=== PATIENT | male | born 1950 | race Caucasian/White ===

== ENCOUNTER 2021-06-05 20:10 | Emergency (ER) | payer SELFPAY ==
[~2021-06-05] VITALS: Ht 172.7 cm; Wt 65.0 kg
[~2021-06-05 20:10] MED LIST: ASPI-41 PO; ATOR20TA66 PO
[2021-06-05 20:43] VITALS: BP 100/70
== END 2021-06-05 22:14 | disposition home or self-care (01) ==
LOC: ER 20:11
DX: K40.90 Unilateral inguinal hernia, without obstruction or gangrene, not specified as recurrent (principal); R11.0 Nausea; Z79.82 Long term (current) use of aspirin; Z79.899 Other long term (current) drug therapy
CPT/HCPCS: 99284

== ENCOUNTER 2022-02-27 18:22 | Inpatient (IN) | payer MEDICAID ==
[~2022-02-27] VITALS: Ht 172.7 cm; Wt 69.1 kg
[2022-02-27] MEDS ORDERED: ketorolac trometh. 30mg/ml inj. IV ONE (18:50)
[2022-02-27] MEDS ORDERED: azithromycin/NS 500mg/250ml 250 ML IV ONE (18:50)
[2022-02-27] MEDS ORDERED: normal saline 1000ML IV soln IVB ONE (18:50)
[2022-02-27] MEDS ORDERED: ondansetron/PF 4mg/2ml inj IV ONE (18:50)
[2022-02-27] MEDS ORDERED: CefTRIAXone/D5W-Rocephin 1gm 50 ML IV ONE (18:50)
[2022-02-27] MEDS ORDERED: ketorolac tromethamine 15mg/ml inj. IV ONE (18:50)
[2022-02-27 19:06] LABS: BASOPHILS # (AUTO) 0.1 X10'3 (0-0.2); BASOPHILS % (AUTO) 0.9 % (0-1); EOSINOPHILS % (AUTO) 0.1 % (0-6); HEMATOCRIT 42.3 % (42.0-52.0); HEMOGLOBIN 14.3 g/dl (14.0-17.9); LYMPHOCYTES # (AUTO) 0.4 X10'3 (1.1-4.8); LYMPHOCYTES % (AUTO) 4.9 % (21-51); MEAN CORPUSCULAR HEMOGLOBIN 30.5 PG (27.0-31.0); MEAN CORPUSCULAR HGB CONC 33.9 g/dL (33.0-36.5); MEAN CORPUSCULAR VOLUME 89.9 FL (78-98); MEAN PLATELET VOLUME 7.2 FL (7.4-10.4); MONOCYTES # (AUTO) 0.6 X10'3 (0-0.9); MONOCYTES % (AUTO) 8.1 % (2-12); NEUTROPHILS # (AUTO) 6.4 X10'3 (1.8-7.7); PLATELET COUNT 255 X10'3 (140-440); RED BLOOD COUNT 4.71 X10'6 (4.70-6.10); RED CELL DISTRIBUTION WIDTH 13.5 % (11.5-14.5); WHITE BLOOD COUNT 7.5 X10'3 (4.5-11.0)
[2022-02-27 19:21] LABS: ALANINE AMINOTRANSFERASE 20 U/L (12-78); ALBUMIN 3.3 G/DL (3.4-5.0); ALBUMIN/GLOBULIN RATIO 0.8 (1.1-1.5); ALKALINE PHOSPHATASE 137 IU/L (46-116); ANION GAP 10 (8-16); ASPARTATE AMINO TRANSFERASE 21 U/L (10-37); BILIRUBIN,TOTAL 0.6 MG/DL (0.1-1.0); BLOOD UREA NITROGEN 19 MG/DL (7-18); BUN/CREATININE RATIO 14.3 (5.4-32.0); CALCIUM 9.4 MG/DL (8.5-10.1); CHLORIDE 101 MMOL/L (99-107); CREATININE 1.33 MG/DL (0.60-1.10); GLUCOSE 132 MG/DL (70-104); SODIUM 136 MMOL/L (135-145); TOTAL CARBON DIOXIDE 25.4 MMOL/L (24-32); TOTAL PROTEIN 7.6 G/DL (6.4-8.2); eGFR 53 ML/MIN
[2022-02-27] MEDS ORDERED: iohexol 350MG/ML 100ml bottle IV ONE (19:37)
[2022-02-27] MEDS ORDERED: metoclopramide 5 mg/ml inj IV ONE (21:40)
[2022-02-27] MEDS ORDERED: acetaminophen 325mg tablet PO ONE (21:40)
[2022-02-27] MEDS ORDERED: potassium Cl 40MEQ/1/2NS 520ml 520 ML IV PRN (22:55)
[2022-02-27] MEDS ORDERED: magnesium 4gm in 100ml NS 100 ML IV PRN (22:55)
[2022-02-27] MEDS ORDERED: acetaminophen 325mg tablet PO PRN ×2 (22:55)
[2022-02-27] MEDS ORDERED: magnesium Cl slow-release 64mg tablet PO PRN (22:55)
[2022-02-27] MEDS ORDERED: mag hydrox/Alum hydrox/simeth 30ml oral suspension PO PRN (22:55)
[2022-02-27] MEDS ORDERED: HYDROcodone/acetaminophen 10/325mg tab PO PRN (22:55)
[2022-02-27] MEDS ORDERED: magnesium hydroxide 30ml (MOM) UD suspension PO PRN (22:55)
[2022-02-27] MEDS ORDERED: ondansetron/PF 4mg/2ml inj IV PRN (22:55)
[2022-02-27] MEDS ORDERED: potassium Cl 20 mEq SR tablet PO PRN ×2 (22:55)
[2022-02-28] MEDS: normal saline 1000ml 1,000 ML IV SCH ×3 (01:08→16:42)
[2022-02-28 07:48] LABS: BASOPHILS % (AUTO) 0.5 % (0-1); EOSINOPHILS % (AUTO) 0.1 % (0-6); HEMATOCRIT 40.9 % (42.0-52.0); HEMOGLOBIN 13.9 g/dl (14.0-17.9); LYMPHOCYTES % (AUTO) 10.4 % (21-51); MEAN CORPUSCULAR HEMOGLOBIN 30.7 PG (27.0-31.0); MEAN CORPUSCULAR VOLUME 90.4 FL (78-98); MEAN PLATELET VOLUME 7.2 FL (7.4-10.4); MONOCYTES % (AUTO) 10.8 % (2-12); NEUTROPHILS # (AUTO) 7.2 X10'3 (1.8-7.7); NEUTROPHILS % (AUTO) 78.2 % (42-75); PLATELET COUNT 251 X10'3 (140-440); RED BLOOD COUNT 4.52 X10'6 (4.70-6.10); RED CELL DISTRIBUTION WIDTH 13.9 % (11.5-14.5); WHITE BLOOD COUNT 9.3 X10'3 (4.5-11.0)
[2022-02-28] MEDS: docusate sod 100mg capsule PO SCH ×2 (07:54→21:39)
[2022-02-28] MEDS: K and/or MAG REPLACEMENT MC SCH ×2 (08:00→20:00)
[2022-02-28] MEDS: heparin, porcine 5000 units/ml vial SQ SCH ×2 (08:03→21:39)
[2022-02-28 08:23] LABS: ALANINE AMINOTRANSFERASE 19 U/L (12-78); ALBUMIN 2.8 G/DL (3.4-5.0); ALBUMIN/GLOBULIN RATIO 0.7 (1.1-1.5); ALKALINE PHOSPHATASE 115 IU/L (46-116); ANION GAP 6 (8-16); ASPARTATE AMINO TRANSFERASE 25 U/L (10-37); BILIRUBIN,TOTAL 0.7 MG/DL (0.1-1.0); BLOOD UREA NITROGEN 21 MG/DL (7-18); BUN/CREATININE RATIO 18.4 (5.4-32.0); CALCIUM 8.7 MG/DL (8.5-10.1); CHLORIDE 103 MMOL/L (99-107); CREATININE 1.14 MG/DL (0.60-1.10); GLUCOSE 117 MG/DL (70-104); MAGNESIUM 1.9 MG/DL (1.5-2.4); POTASSIUM 3.9 MMOL/L (3.5-5.1); SODIUM 134 MMOL/L (135-145); TOTAL CARBON DIOXIDE 25.2 MMOL/L (24-32); TOTAL PROTEIN 6.8 G/DL (6.4-8.2); eGFR 64 ML/MIN
[2022-02-28] MEDS ORDERED: RED600TA PO (10:25)
[2022-02-28] MEDS ORDERED: oseltamivir phos 75mg capsule PO ONE (20:15)
[2022-03-01 02:22] VITALS: BP 119/62
[2022-03-01] MEDS: normal saline 1000ml 1,000 ML IV SCH ×2 (04:55→15:08)
[2022-03-01 06:20] LABS: BASOPHILS % (AUTO) 0.5 % (0-1); EOSINOPHILS % (AUTO) 0.4 % (0-6); HEMOGLOBIN 13.5 g/dl (14.0-17.9); LYMPHOCYTES # (AUTO) 1.3 X10'3 (1.1-4.8); LYMPHOCYTES % (AUTO) 19.3 % (21-51); MEAN CORPUSCULAR HEMOGLOBIN 30.5 PG (27.0-31.0); MEAN CORPUSCULAR HGB CONC 33.9 g/dL (33.0-36.5); MEAN PLATELET VOLUME 7.2 FL (7.4-10.4); MONOCYTES # (AUTO) 0.8 X10'3 (0-0.9); MONOCYTES % (AUTO) 11.7 % (2-12); NEUTROPHILS # (AUTO) 4.6 X10'3 (1.8-7.7); NEUTROPHILS % (AUTO) 68.1 % (42-75); PLATELET COUNT 224 X10'3 (140-440); RED BLOOD COUNT 4.44 X10'6 (4.70-6.10); RED CELL DISTRIBUTION WIDTH 13.9 % (11.5-14.5); WHITE BLOOD COUNT 6.8 X10'3 (4.5-11.0)
[2022-03-01 06:30] VITALS: BP 124/66
[2022-03-01 06:31] LABS: ALANINE AMINOTRANSFERASE 17 U/L (12-78); ALBUMIN 2.7 G/DL (3.4-5.0); ALBUMIN/GLOBULIN RATIO 0.7 (1.1-1.5); ALKALINE PHOSPHATASE 110 IU/L (46-116); ANION GAP 6 (8-16); ASPARTATE AMINO TRANSFERASE 22 U/L (10-37); BILIRUBIN,TOTAL 0.5 MG/DL (0.1-1.0); BLOOD UREA NITROGEN 15 MG/DL (7-18); BUN/CREATININE RATIO 15.8 (5.4-32.0); CALCIUM 8.7 MG/DL (8.5-10.1); CHLORIDE 105 MMOL/L (99-107); CREATININE 0.95 MG/DL (0.60-1.10); GLUCOSE 100 MG/DL (70-104); MAGNESIUM 1.8 MG/DL (1.5-2.4); POTASSIUM 3.8 MMOL/L (3.5-5.1); SODIUM 137 MMOL/L (135-145); TOTAL CARBON DIOXIDE 26.1 MMOL/L (24-32); TOTAL PROTEIN 6.4 G/DL (6.4-8.2); eGFR 78 ML/MIN
--- NOTE | 2022-03-01 06:35 | NUR ---
Patient in room PCU 3020. I have received report from Eulalio CABRALES and had the opportunity to ask questions and assume patient care.
[2022-03-01] MEDS: K and/or MAG REPLACEMENT MC SCH (08:00)
[2022-03-01] MEDS: docusate sod 100mg capsule PO SCH (08:11)
[2022-03-01] MEDS: heparin, porcine 5000 units/ml vial SQ SCH (08:17)
[2022-03-01 10:59] VITALS: BP 130/62
[2022-03-01] MEDS ORDERED: PERFLUTREN PROTEIN-A MICROSPHR (Optison) 0.22 MG/ML 3ML VIAL IV ONE (11:35)
--- NOTE | 2022-03-01 14:33 | NUR ---
RE: Ambrocio Cuevas room 302 Echo done Did you want to put in discharge orders? Christopher CABRALES [id number]
[2022-03-01 15:21] VITALS: BP 135/64
--- NOTE | 2022-03-01 15:31 | NUR ---
PAGER ID: [phone] MESSAGE: [phone] Mason Albrecht. Patient is wondering if he is still getting DC today. He has a ride here now. Annia CHAVIS [phone]
[2022-03-01] MEDS ORDERED: TAM75C PO ×2 (16:32)
--- NOTE | 2022-03-01 16:33 | NUR ---
PAGER ID: [phone] MESSAGE: [phone] Ambrocio Cuevas. Patient continues to ask what time he is going to be discharged. He is concerned about the snow in [place]. His Echo is completed. Thank you Annia CHAVIS [phone]
--- NOTE | 2022-03-01 17:02 | NUR ---
Patient discharged home. Discharge instructions and education provided and patient's questions answered. New Rx sent to preferred pharmacy. Patient escorted out by nursing and left via private vehicle.
== END 2022-03-01 16:55 | disposition home or self-care (01) | DRG 113 ==
LOC: ER 18:23 → ED HOLD 22:58 → PCU 3S 02-28 22:15
PROVIDERS: ADMIT Internal Medicine; ATTEND Internal Medicine
PROC: B32T1ZZ Computerized Tomography (CT Scan) of Left Pulmonary Artery using Low Osmolar Contrast (ICD-10-PCS; principal; 2022-02-27)
PROC: B3201ZZ Computerized Tomography (CT Scan) of Thoracic Aorta using Low Osmolar Contrast (ICD-10-PCS; 2022-02-27)
PROC: B32S1ZZ Computerized Tomography (CT Scan) of Right Pulmonary Artery using Low Osmolar Contrast (ICD-10-PCS; 2022-02-27)
DX: J10.1 Influenza due to other identified influenza virus with other respiratory manifestations (principal); I47.1 Supraventricular tachycardia; E78.5 Hyperlipidemia, unspecified; Z20.822 Contact with and (suspected) exposure to COVID-19; R63.0 Anorexia; R09.02 Hypoxemia; Z28.310 Unvaccinated for COVID-19; Z68.23 Body mass index [BMI] 23.0-23.9, adult
CPT/HCPCS: 36415; 71045; 71275; 80053; 83605; 83735; 83880; 84145; 85025; 87040; 87081; 87502; 87503; 87635; 93005; 93306; 96361; 96365; 96367; 96375; 99285; C9803; G0378; J0456; J0696; J1644; J1885; J2765; J7030; Q9967

== ENCOUNTER 2023-07-20 12:14 | Emergency (ER) | payer MEDICARE, MEDICAID ==
[~2023-07-20] VITALS: Ht 172.7 cm; Wt 69.1 kg
[~2023-07-20 12:14] MED LIST changes: -ASPI-41 PO; -ATOR20TA66 PO; +MAGN100T PO; +OMEG1CAP61 PO; +RED600TA PO; +UBID100C16 PO
[2023-07-20 13:26] VITALS: BP 143/55; PULSE 73; RESP 16; TEMP 98.7; O2SAT 96
[2023-07-20] MEDS ORDERED: SULF1TAB49 PO (14:30)
== END 2023-07-20 15:00 | disposition left against medical advice (07) ==
LOC: ER 12:15
DX: N45.3 Epididymo-orchitis (principal); Z76.0 Encounter for issue of repeat prescription
CPT/HCPCS: 99281

== ENCOUNTER 2023-07-22 16:56 | Emergency (ER) | payer MEDICARE, MEDICAID ==
[~2023-07-22] VITALS: Ht 172.7 cm; Wt 65.9 kg
[~2023-07-22 16:56] MED LIST changes: +SULF1TAB49 PO
[2023-07-22] MEDS ORDERED: ketorolac trometh. 30mg/ml inj. IV STA (18:56)
[2023-07-22] MEDS ORDERED: ondansetron/PF 4mg/2ml inj IV ONE (19:00)
[2023-07-22] MEDS ORDERED: HYDROmorphone inj. 0.5 MG/0.5 ML DISP.SYRIN IV PRN (19:00)
[2023-07-22] MEDS ORDERED: ketorolac tromethamine 15mg/ml inj. IV STA (19:01)
[2023-07-22 19:27] LABS: BASOPHILS # (AUTO) 0.1 X10'3 (0-0.2); EOSINOPHILS # (AUTO) 0.4 X10'3 (0-0.9); LYMPHOCYTES # (AUTO) 1.3 X10'3 (1.1-4.8); MONOCYTES # (AUTO) 0.9 X10'3 (0-0.9); WHITE BLOOD COUNT 9.6 X10'3 (4.5-11.0)
[2023-07-22 19:30] LABS: BASOPHILS % (AUTO) 0.5 % (0-1); EOSINOPHILS % (AUTO) 4.4 % (0-6); HEMATOCRIT 42.6 % (42.0-52.0); HEMOGLOBIN 14.9 g/dl (14.0-17.9); LYMPHOCYTES % (AUTO) 13.4 % (21-51); MEAN CORPUSCULAR HEMOGLOBIN 31.8 PG (27.0-31.0); MEAN CORPUSCULAR HGB CONC 34.8 g/dL (33.0-36.5); MEAN CORPUSCULAR VOLUME 91.3 FL (78-98); MEAN PLATELET VOLUME 6.6 FL (7.4-10.4); MONOCYTES % (AUTO) 9.8 % (2-12); NEUTROPHILS # (AUTO) 6.9 X10'3 (1.8-7.7); NEUTROPHILS % (AUTO) 71.9 % (42-75); PLATELET COUNT 480 X10'3 (140-440); RED BLOOD COUNT 4.67 X10'6 (4.70-6.10); RED CELL DISTRIBUTION WIDTH 12.8 % (11.5-14.5)
[2023-07-22] MEDS ORDERED: iohexol 300mg/ml 100ml inj. ONE (19:34)
[2023-07-22 19:39] LABS: BILIRUBIN,URINE NEGATIVE (Neg); CLARITY,URINE CLEAR (Clear); COLOR,URINE YELLOW (Yellow); GLUCOSE, URINE NEGATIVE (Neg); KETONES,URINE NEGATIVE (Neg); LEUKOCYTE ESTERASE ,URINE NEGATIVE (Neg); NITRITES, URINE NEGATIVE (Neg); OCCULT BLOOD,URINE NEGATIVE (Neg); PROTEIN,URINE NEGATIVE (Neg); UA COLLECTION TYPE NON-SPECIFIED; UROBILINOGEN,URINE 0.2 E.U/dL (0.2-1.0)
[2023-07-22 19:40] LABS: ALBUMIN 3.2 G/DL (3.4-5.0); BLOOD UREA NITROGEN 14 MG/DL (7-18); BUN/CREATININE RATIO 8.8 (10.0-20.0); CALCIUM 10.4 MG/DL (8.5-10.1); CHLORIDE 101 MMOL/L (99-107); MAGNESIUM 2.4 MG/DL (1.5-2.4); TOTAL CARBON DIOXIDE 28.5 MMOL/L (24-32); eCRCL 39 ML/MIN; eGFR 43 ML/MIN
[2023-07-22 19:47] LABS: ANION GAP 14 (8-16); GLUCOSE 124 MG/DL (70-104); POTASSIUM 3.4 MMOL/L (3.5-5.1); SODIUM 143 MMOL/L (135-145)
[2023-07-22 21:40] VITALS: BP 145/61; PULSE 58; RESP 16; TEMP 99; O2SAT 98
== END 2023-07-22 21:42 | disposition home or self-care (01) ==
LOC: ER 16:56
DX: N44.00 Torsion of testis, unspecified (principal); N43.3 Hydrocele, unspecified; N45.1 Epididymitis; F12.90 Cannabis use, unspecified, uncomplicated
CPT/HCPCS: 36415; 72193; 76870; 80048; 81003; 83605; 83735; 84145; 85025; 87040; 93976; 99285; J3490; Q9967

== ENCOUNTER 2024-09-04 23:00 | Inpatient (IN) | payer MEDICARE, MEDICAID ==
[~2024-09-04] VITALS: Ht 165.1 cm; Wt 67.2 kg
[~2024-09-04 23:00] MED LIST changes: -SULF1TAB49 PO
--- NOTE | 2024-09-04 23:35 | RADIOLOGY REPORT ---
EXAM: CT CT STROKE ALERT INDICATION: STROKE SYMPTOMS TECHNIQUE: CT of the head without intravenous contrast. Radiation Dose : 1. Head: CT Dose: CTDI volume is 58 mGy. Dose-length product is 1095 mGy*cm The dose indicators for CT are the volume Computed Tomography (CT) Dose Index (CTDIvol) and the Dose Length Product (DLP), and are measured in units of mGy and mGy-cm, respectively. These indicators are not patient dose, but values generated from the CT scanner acquisition factors. The report includes radiation exposure data for exposures received during this examination. COMPARISON: None FINDINGS: There is no evidence of acute intracranial hemorrhage, extra-axial collection, mass effect, midline s hift, herniation or hydrocephalus. The ventricles, sulci and cisterns are age appropriate. The ochoa-white differentiation is intact. Patchy periventricular and subcortical white matter hypoattenuation is nonspecific but may be related to small vessel ischemic disease. Air-fluid level in the left maxillary sinus. Mastoid air cells are clear. The surrounding soft tissues and osseous structures are unremarkable. IMPRESSION: No acute intracranial abnormality. Left maxillary sinus disease. If there is high clinical concern f or acute infarct consider MRI for further evaluation.
[2024-09-04 23:36] LABS: BASOPHILS % (AUTO) 0.6 % (0-1); EOSINOPHILS # (AUTO) 0.3 X10'3 (0-0.9); EOSINOPHILS % (AUTO) 4.9 % (0-6); HEMATOCRIT 45.2 % (42.0-52.0); HEMOGLOBIN 15.5 g/dl (14.0-17.9); LYMPHOCYTES # (AUTO) 1.4 X10'3 (1.1-4.8); LYMPHOCYTES % (AUTO) 20.9 % (21-51); MEAN CORPUSCULAR HEMOGLOBIN 31.1 PG (27.0-31.0); MEAN CORPUSCULAR HGB CONC 34.4 g/dL (33.0-36.5); MEAN CORPUSCULAR VOLUME 90.5 FL (78-98); MEAN PLATELET VOLUME 7.2 FL (7.4-10.4); MONOCYTES # (AUTO) 0.7 X10'3 (0-0.9); MONOCYTES % (AUTO) 9.9 % (2-12); NEUTROPHILS # (AUTO) 4.3 X10'3 (1.8-7.7); NEUTROPHILS % (AUTO) 63.7 % (42-75); PLATELET COUNT 277 X10'3 (140-440); RED BLOOD COUNT 4.99 X10'6 (4.70-6.10); WHITE BLOOD COUNT 6.8 X10'3 (4.5-11.0)
[2024-09-04 23:42] LABS: ALBUMIN 3.6 G/DL (3.4-5.0); ANION GAP 11 (8-16); BLOOD UREA NITROGEN 10 MG/DL (7-18); BUN/CREATININE RATIO 7.7 (10.0-20.0); CALCIUM 9.6 MG/DL (8.5-10.1); CHLORIDE 102 MMOL/L (99-107); GLUCOSE 188 MG/DL (70-104); POTASSIUM 3.8 MMOL/L (3.5-5.1); SODIUM 141 MMOL/L (135-145); TOTAL CARBON DIOXIDE 27.7 MMOL/L (24-32); eCRCL 45 ML/MIN; eGFR 54 ML/MIN
[2024-09-04 23:45] LABS: APTT 30 SECONDS (22-32); INR 1.1 INR; PROTHROMBIN TIME 10.8 SECONDS (9.0-12.0)
--- NOTE | 2024-09-04 23:45 | RADIOLOGY REPORT ---
CHEST RADIOGRAPH Indication: Stroke Alert Technique: Single frontal view of the chest was obtained Comparison: CHEST,SINGLE VIEW on DOS: 02/27/22 FINDINGS: Lines and Tubes: None Lungs: Clear Pleura: No effusion. No pneumothorax. Cardiomediastinal contours: Unremarkable Bones: Unremarkable IMPRESSION: Clear lungs.
[2024-09-05] VITALS (7 sets, daily range): BP systolic 115–153; BP diastolic 39–74; PULSE 42–68; RESP 13–16; TEMP 97.5–97.8; O2SAT 98–100
--- NOTE | 2024-09-05 00:01 | Physician Documentation ---
History of Present Illness ~ Chief Complaint: Dizziness Stated Complaint: STROKE LIKE SYMPTOMS Time Seen by MD: 23:59 Primary Medical Doctor: NONE Mode of Arrival: POV HPI Patient presents to the emergency room for evaluation of confusion and some degree of right upper extremity weakness. Daughter at bedside also states he has problems completing his sentences and words. Onset of symptoms three weeks ago. He is not on blood thinners. Takes red rice yeast for hyperlipidemia and multiple other supplements. Patient believes many of his symptoms are because of the water he drinks Medication Reconciliation Allergies: Coded Allergies: No Known Allergies (Unverified , 09/04/24) Scheduled Magnesium Glycinate (Mag Glycinate), 2 TAB PO DAILY, (Reported) [place]-3 Acid Ethyl Esters* (Lovaza*), 3-4 CAP PO DAILY, (Reported) Red Yeast Rice (Red Yeast Rice), 600 MG PO BID, (Reported) Ubidecarenone (Coq-10), 100 MG PO DAILY, (Reported) Past Medical History Past Medical History: Pneumonia, *PSYCH* Past Surgical History: no surgical history Patient History: Neoplasm of brain MOTHER, Onset:60 Alcohol Use: None Drug Use: marijuana Lives with: Family Lives In: Home Review of Systems ROS All review of systems negative except as per HPI Physical Exam Vital Signs: Temperature: 98.7, Source: Oral, Heart Rate: 60, Respiratory Rate: 18, BP: 148/66, Pulse Oximetry: 97, Weight: 67.200 Oxygen Flow Rate: 0 General Appearance General: Patient is awake, alert, oriented x3, pressured speech Head: Normocephalic and atraumatic. Eyes: Conjunctival normal. EOMI. PERRL. ENT: Mucous membranes moist. Neck: Supple, trachea is midline. Chest: Clear to auscultation bilaterally without rales, rhonchi, or wheezes. There is no accessory muscle use or retractions. Cardiac: RRR without murmurs, gallops, or rubs. Extremities: Normal strength. Normal range of motion. No deformities or edema. Neuro: Cranial nerves II-XII grossly intact. No focal neuro deficits. Patient ambulating without difficulty. Progress Results/Orders Results/Orders Vital Signs 09/04/24 09/04/24 23:04 23:33 Temp 98.7 Pulse 60 Resp 16 18 B/P (MAP) 148/66 Pulse Ox 97 O2 Flow Rate 0 Laboratory Tests Test 09/04/24 23:25 White Blood Count 6.8 Red Blood Count 4.99 Hemoglobin 15.5 Hematocrit 45.2 Mean Corpuscular Volume 90.5 Mean Corpuscular Hemoglobin 31.1 H Mean Corpuscular Hemoglobin Concent 34.4 Red Cell Distribution Width 13.0 Platelet Count 277 Mean Platelet Volume 7.2 L Neutrophils (%) (Auto) 63.7 Lymphocytes (%) (Auto) 20.9 L Monocytes (%) (Auto) 9.9 Eosinophils (%) (Auto) 4.9 Basophils (%) (Auto) 0.6 Neutrophils # (Auto) 4.3 Lymphocytes # (Auto) 1.4 Monocytes # (Auto) 0.7 Eosinophils # (Auto) 0.3 Basophils # (Auto) 0.0 CBC Comment Prothrombin Time 10.8 INR International Normalized Ratio 1.1 Activated Partial Thromboplast Time 30 Coagulation Comments Sodium Level 141 Potassium Level 3.8 Chloride Level 102 Carbon Dioxide Level 27.7 Anion Gap 11 Blood Urea Nitrogen 10 Creatinine 1.30 H Estimated GFR/1.73 m2 54 BUN/Creatinine Ratio 7.7 L Glucose Level 188 H Calcium Level 9.6 Albumin 3.6 Chemistry Comments EKG/XRAY/CT/US/VASC/MRI EKG : Additional Comment EKG interpreted by myself shows time of 06/19/2025, rate 58, sinus bradycardia, normal axis, no ST changes Chest X-Ray : Additional Comments Exam: CHEST,SINGLE VIEW CHEST RADIOGRAPH Indication: Stroke Alert Technique: Single frontal view of the chest was obtained Comparison: CHEST,SINGLE VIEW on DOS: 02/27/22 FINDINGS: Lines and Tubes: None Lungs: Clear Pleura: No effusion. No pneumothorax. Cardiomediastinal contours: Unremarkable Bones: Unremarkable IMPRESSION: Clear lungs. : Impression Exam: CT STROKE ALERT EXAM: CT CT STROKE ALERT INDICATION: STROKE SYMPTOMS TECHNIQUE: CT of the head without intravenous contrast. Radiation Dose : 1. Head: CT Dose: CTDI volume is 58 mGy. Dose-length product is 1095 mGy*cm The dose indicators for CT are the volume Computed Tomography (CT) Dose Index (CTDIvol) and the Dose Length Product (DLP), and are measured in units of mGy and mGy-cm, respectively. These indicators are not patient dose, but values generated from the CT scanner acquisition factors. The report includes radiation exposure data for exposures received during this examination. COMPARISON: None FINDINGS: There is no evidence of acute intracranial hemorrhage, extra-axial collection, mass effect, midline shift, herniation or hydrocephalus. The ventricles, sulci and cisterns are age appropriate. The [place]-white differentiation is intact. Patchy periventricular and subcortical white matter hypoattenuation is nonspecific but may be related to small vessel ischemic disease. Air-fluid level in the left maxillary sinus. Mastoid air cells are clear. The surrounding soft tissues and osseous structures are unremarkable. IMPRESSION: No acute intracranial abnormality. Left maxillary sinus disease. If there is high clinical concern for acute infarct consider MRI for further evaluation. Medical Decision Making Findings Patient presented to the emergency room with altered mental status and slurred speech as per HPI. Differentials include but are not limited to stroke, psychiatric disturbance, metabolic encephalopathy, urinary tract infection therefore emergent labs and imaging indicated. Labs and imaging reassuring. Possible stroke we will admit for further investigation. Patient is outside the window for TNK Departure Admitted to Inpatient Unit: yes, to hospitalist Impression: Primary Impression: Possible stroke Condition: Guarded Referrals: NO PRIMARY CARE PROVIDER (PCP) Signature Scribe Signature: No scribe Attestation: The note accurately reflects work and decisions made by me.Fareed Barclay MD 09/05/24 00:23 FAREED BARCLAY MD Sep 05, 2024 00:00
[2024-09-05 01:05] LABS: BILIRUBIN,URINE NEGATIVE (Neg); CLARITY,URINE CLEAR (Clear); COLOR,URINE YELLOW (Yellow); GLUCOSE, URINE NEGATIVE (Neg); KETONES,URINE NEGATIVE (Neg); LEUKOCYTE ESTERASE ,URINE NEGATIVE (Neg); NITRITES, URINE NEGATIVE (Neg); OCCULT BLOOD,URINE NEGATIVE (Neg); PROTEIN,URINE NEGATIVE (Neg); UROBILINOGEN,URINE 0.2 E.U/dL (0.2-1.0)
[2024-09-05 01:06] LABS: UA COLLECTION TYPE CLN CATCH MIDSTREAM
[2024-09-05] MEDS ORDERED: magnesium sulf-water 2g/50mL 50 ML IV PRN (01:20)
[2024-09-05] MEDS ORDERED: acetaminophen 325mg tablet PO PRN (01:20)
[2024-09-05] MEDS ORDERED: magnesium hydroxide 30ml (MOM) UD suspension PO PRN (01:20)
[2024-09-05] MEDS ORDERED: mag hydrox/Alum hydrox/simeth 30ml oral suspension PO PRN (01:20)
[2024-09-05] MEDS ORDERED: magnesium sulf-water 4G/100mL 100 ML IV PRN (01:20)
[2024-09-05] MEDS ORDERED: magnesium Cl slow-release 64mg tablet PO PRN (01:20)
[2024-09-05] MEDS ORDERED: potassium Cl 40MEQ/1/2NS 520ml 520 ML IV PRN (01:20)
[2024-09-05] MEDS ORDERED: ondansetron/PF 4mg/2ml inj IV PRN (01:20)
[2024-09-05] MEDS ORDERED: HYDROcodone/acetaminophen 5mg/325mg tablet PO PRN (01:20)
[2024-09-05] MEDS ORDERED: potassium Cl 20 mEq SR tablet PO PRN ×2 (01:20)
[2024-09-05] MEDS ORDERED: morphine 2 MG/ML inj. syringe IV PRN (01:20)
[2024-09-05] MEDS: PERFLUTREN PROTEIN-A MICROSPHR (Optison) 0.22 MG/ML 3ML VIAL IV ONE (01:29)
[2024-09-05] MEDS ORDERED: LORazepam 2 mg/ml vial IM PRN (01:30)
--- NOTE | 2024-09-05 01:33 | HISTORY AND PHYSICAL-Residence ---
History & Physical Providers to CC Resident Creating Document: RAUL QUIROZ, RES CC: BRANDIE BONILLA MD ~ History of Present Illness Primary Medical Doctor: NONE Reason for Admit\Complaint: Dizziness, forgetful History of Present Illness A 73-year-old male with past medical history of HTN, HLD was brought in by his daughter in view of dizziness that started yesterday. Patient states that he was feeling dizzy when he was moving his head especially to the left side and bending down. Besides this patient said he was newly forgetful and felt very dehydrated. Patient had weakness in his right arm, loss of masticator and sensory deficit that usually happened at night. Patient endorses nausea and vomitings associated with the episode, denies headache, involuntary bowel bladder movements, swallowing difficulty or vision changes. Patient endorses that he had several similar episodes in the past and was diagnosed with TIA. Allergies: Coded Allergies: No Known Allergies (Unverified , 09/04/24) Home Medications Home Medications Active Reported Mag Glycinate (Magnesium Glycinate) 100 Mg Tablet 2 Tab PO DAILY Coq-10 (Ubidecarenone) 100 Mg Capsule 100 Mg PO DAILY Lovaza* ([place]ce-3 Acid Ethyl Esters*) 1 Gm Capsule 3-4 Cap PO DAILY Red Yeast Rice 600 Mg Tablet 600 Mg PO BID Past Medical History Past Medical History HTN TIA HLD PTSD Past Surgical History Surgical History Comment None Family History Family History: Neoplasm of brain MOTHER, Onset:60 Past Social History Social History Comment Lives at home with children Does not smoke cigarettes Smokes marijuana oil Does not consume alcohol or illicit drugs Smoking: Non-Smoker Alcohol Use: None Drug Use: Marijuana Lives with: Family Lives In: Home ROS ROS All other systems reviewed in full and negative except for the pertinent positives mentioned in the HPI. Exam Vitals: Vital Signs Date Time Temp Pulse Resp B/P (MAP) Pulse Ox O2 Delivery O2 Flow Rate FiO2 09/04/24 23:33 18 09/04/24 23:04 98.7 60 97 0 General: General: Alert, awake, oriented, not in acute distress HEENT: PERRLA, EOMI, no icterus, pallor, lymphadenopathy, carotid bruit Respiratory system: Bilateral vesicular breath sounds heard, no adventitious breath sounds CVS: S1-S2 heard, no murmurs/rubs/gallop GI: Soft, nontender, no organomegaly, no guarding/rigidity, bowel sounds present Neuro: Power in upper and lower bilateral extremities: 4/5, no sensory deficits, coordination intact, gait normal, cranial nerves intact Extremities: No edema cyanosis clubbing/deformities Skin: Warm and dry Psych: Anxious Diagnostic Data Last Recorded Lab Results: 09/04/24232409/04/[id number] Diagnostic Data: Laboratory Tests Test 09/04/24 23:25 Prothrombin Time 10.8 SECONDS (9.0-12.0) INR International Normalized Ratio 1.1 INR Activated Partial Thromboplast Time 30 SECONDS (22-32) Coagulation Comments Advance Care Planning Advanced Care plannin - 30 Minutes (I spent 20 minutes discussing various resuscitative measures and the patient decided to be full code) Additional Plan Assessment: A 73-year-old male with a past medical history of HTN, HLD presented to the ED with dizziness, forgetfulness and weakness in his right arm. Patient is admitted for the evaluation and management of TIA versus CVA. Plan: TIA versus CVA NIHSS: 0 CT head: small vessel ischemic disease. Follow up with MRI brain, lipid panel, echo One dose of aspirin 325 mg to be given now, aspirin 81 mg daily from tomorrow Atorvastatin 80 mg once daily PT eval and treat Aspiration precautions Swallow eval Neuro checks [facility] neurologist consulted, awaiting recommendations Continue to monitor telemetry Dizziness, unspecified Possibly BPPV Outpatient ENT follow up and PT therapies for maneuvers Prerenal YVETTE probably secondary to renal tubular stasis Continue IV fluids at 100 cc/hour Continue to monitor BMP HTN Allow permissive hypertension for 48 hours SBP less than 180, greater than 140 HLD Follow up with lipid panel Statin as per above PTSD Ativan p.r.n. Follow up with urinalysis, culture, urine toxicity Code status: Full code Diet: Regular DVT prophylaxis: Heparin 5000 subcu Disposition: Admit to neuro, follow up with [facility] Neurology recommendations Raul Quiroz MD Internal Medicine, PGY 1 Date of Service: Sep 05, 2024 Billing Provider: BRANDIE BONILLA MD, SIVA, RES Sep 05, 2024 01:33
[2024-09-05 01:45] LABS: HEMOGLOBIN A1C 5.5 % (4.5-6.2)
[2024-09-05] MEDS: normal saline 1000ml 1,000 ML IV SCH (01:48)
[2024-09-05] MEDS: aspirin 325mg tablet PO ONE (01:49)
[2024-09-05 01:50] LABS: URINE AMPHETAMINE SCREEN NEGATIVE (Neg); URINE BARBITUATE SCREEN NEGATIVE (Neg); URINE BENZODIAZEPINES SCREEN NEGATIVE (Neg); URINE CANNABINOID SCREEN POSITIVE (Neg); URINE COCAINE SCREEN NEGATIVE (Neg); URINE METHADONE SCREEN NEGATIVE (Neg); URINE OPIATE SCREEN NEGATIVE (Neg); URINE PHENCYCLIDINE SCREEN NEGATIVE (Neg)
[2024-09-05 06:28] LABS: MAGNESIUM 1.8 MG/DL (1.5-2.4); POTASSIUM 3.9 MMOL/L (3.5-5.1)
[2024-09-05] MEDS: K and/or MAG REPLACEMENT MC SCH (07:20)
--- NOTE | 2024-09-05 07:56 | RADIOLOGY REPORT ---
OF [facility] EXAMINATION: MR MRI HEAD INDICATION: Ruled out CVA COMPARISON: CT scan of the head performed on 09/04/2024. TECHNIQUE: Multiplanar, multisequence magnetic resonance imaging of the brain was performed without the use of i ntravenous contrast. FINDINGS: No evidence of acute or remote infarct. No intracranial hemorrhage. No mass effect. There is periventricular/deep white matter T2/FLAIR hyperintensity is nonspecific, but most commonly associated with chronic microvascular disease. The ventricles and sulci are normal in size for age. Clear basal cisterns. Flow voids in the major intracranial vessels are maintained. No abnormality of the orbits. There is opacification of the left maxillary sinus. The mastoid air cells are clear. No abnormality of the visualized osseous structures and extracranial soft tissues. IMPRESSION: 1. No acute infarct, intracranial hemorrhage, mass effect, or hydrocephalus.
--- NOTE | 2024-09-05 08:01 | ELECTROCARDIOGRAPH REPORT ---
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 Yayo Waller Measurements Intervals [place] Rate: 58 P: 61 DC: 187 QRS: -6 QRSD: 127 T: 60 QT: 475 QTc: 467 Interpretive Statements Sinus bradycardia Probable left atrial enlargement IVCD, consider atypical RBBB Electronically Signed On 09-05-2024 11:29:[address] Yayo Waller Please click the below link to view image of tracing.
[2024-09-05] MEDS: atorvastatin 20mg tablet PO SCH (09:11)
[2024-09-05] MEDS: aspirin 81mg, enteric-coated 1 TAB TABLET.DR PO SCH (09:11)
[2024-09-05] MEDS: heparin, porcine 5000 units/ml vial SQ SCH (09:12)
[2024-09-05] MEDS: docusate sod 100mg capsule PO SCH (09:20)
[2024-09-05] MEDS ORDERED: iohexol 350MG/ML 100ml bottle IV ONE (09:49)
[2024-09-05] MEDS: normal saline 1000ml 1,000 ML IV ONE (10:40)
--- NOTE | 2024-09-05 11:02 | RADIOLOGY REPORT ---
INDICATION: CVA COMPARISON: None TECHNIQUE: CTA head with intravenous contrast. CTA neck with intravenous contrast. 3D image postproce ssing was performed on a dedicated workstation and images were used for interpretation and reporting. Radiation Dose Information: CT Dose: CTDI volume is 40 mGy. Dose-length product is 543 mGy*cm CONTRAST: Type of contrast: Omni 350 Contrast injected: 100 ml FINDINGS: CTA head: There is normal enhancement of the visualized distal internal carotid, anterior and middle cerebral a rteries. There is a normal anterior communicating artery complex. Right V4 segment is diminutive and terminates in the right PICA. The vertebral, basilar, cerebellar and posterior cerebral arteries are within normal limits. The early parenchymal enhancement is grossly unremarkable. The visualized intra cranial venous structures are grossly unremarkable. Left maxillary sinus disease. CTA neck: The visualized thoracic aortic arch and proximal great vessels are unremarkable. The left common, internal and external carotid arteries are within normal limits. The right common, internal and external carotid arteries are within normal limits. Right vertebral artery originates off of the aorta and demonstrates a retroesophageal course. Left ve rtebral artery is dominant. Bilateral apical pleural-parenchymal scarring. Degenerative changes in the cervical spine. IMPRESSION: 1. No evidence of hemodynamically significant intracranial stenosis, proximal occlusion or aneurysm. 2. No evidence of hemodynamically significant carotid stenosis or dissection. 3. Right vertebral artery originates off the aorta with a retroesophageal course. All CT scans at this medical facility are performed using dose modulation techniques as appropriate t o a performed exam including the following: Automated exposure control was utilized; adjustment of th e MA and/or KV according to patient size; and use of iterative reconstruction technique. HS:Y
[2024-09-05] MEDS: normal saline 1000ml 1,000 ML IVB ONE (14:11)
--- NOTE | 2024-09-05 19:22 | DISCHARGE SUMMARY-Residence ---
Discharge Summary Providers to CC Resident Creating Document: JIE DEMARCO RES ~ Discharge Summary Admission Diagnosis: CVA work up Hospital Course DATE OF ADMISSION: 09/05/2024 DATE OF DISCHARGE: 09/05/2024 Hospital course same as mentioned discharge summary. Discharge Diagnosis\Comment: Dehydration, positive orthostatics CVA and TIA ruled out BPPV ruled out YVETTE secondary to renal tubular stasis Neuropathy of the right upper hand, recommend outpatient nerve conduction study Operations\Procedures: None Consultants: None Complications: None Condition on DC: Stable Continued Medications: Magnesium Glycinate (Mag Glycinate) 100 Mg Tablet 2 TAB PO DAILY, TAB 0 Refills [place]-3 Acid Ethyl Esters* (Lovaza*) 1 Gm Capsule 3-4 CAP PO DAILY, CAP Red Yeast Rice (Red Yeast Rice) 600 Mg Tablet 600 MG PO BID Ubidecarenone (Coq-10) 100 Mg Capsule 100 MG PO DAILY, CAP Discharge Summary: As per HPI: A 73-year-old male with past medical history of HTN, HLD was brought in by his daughter in view of dizziness that started yesterday. Patient states that he was feeling dizzy when he was moving his head especially to the left side and bending down. Besides this patient said he was newly forgetful and felt very dehydrated. Patient had weakness in his right arm, loss of manager imaging and sensory deficit that usually happened at night. Patient endorses nausea and vomitings associated with the episode, denies headache, involuntary bowel bladder movements, swallowing difficulty or vision changes. Patient endorses that he had several similar episodes in the past and was diagnosed with TIA. Hospital course: On further evaluation CT head No acute intracranial abnormality. Left maxillary sinus disease. If there is high clinical concern for acute infarct consider MRI for further evaluation. MRI head was negative. Echo was done which showed EF of 60-65%. CTA head and neck no significant stenosis noted. His orthostatic blood pressure was positive, was adequately fluid resuscitated repeat orthostatic within normal limits. His clinical condition improved significantly, his hospital course is uncomplicated he is hemodynamically stable on the day of discharge and her physical exam is as follows: General: Alert, awake, oriented, not in acute distress HEENT: PERRLA, EOMI, no icterus, pallor, lymphadenopathy, carotid bruit Respiratory system: Bilateral vesicular breath sounds heard, no adventitious breath sounds CVS: S1-S2 heard, no murmurs/rubs/gallop GI: Soft, nontender, no organomegaly, no guarding/rigidity, bowel sounds present Neuro: Power in upper and lower bilateral extremities: 4/5, no sensory def icits, coordination intact, gait normal, cranial nerves intact Extremities: No edema cyanosis clubbing/deformities Skin: Warm and dry Discharge medications can be found above. Patient is being discharged with the following advice: Follow up with pcp within a week, your work up for stroke has been negative, MRI head is negative. CTA head and neck, no acute findings noted. Your heart LVEF is 60-65% which is normal. Keep yourself hydrated, drink atleast 1.5 to 2 lt water a day. If condition worsens call 911 or go to the nearest ER immediately. Laboratory Tests Test 09/04/24 23:25 09/05/24 00:35 09/05/24 05:16 White Blood Count 6.8 X10'3 Red Blood Count 4.99 X10'6 Hemoglobin 15.5 g/dl Hematocrit 45.2 % Mean Corpuscular Volume 90.5 FL Mean Corpuscular Hemoglobin 31.1 PG Mean Corpuscular Hemoglobin Concent 34.4 g/dL Red Cell Distribution Width 13.0 % Platelet Count 277 X10'3 Mean Platelet Volume 7.2 FL Neutrophils (%) (Auto) 63.7 % Lymphocytes (%) (Auto) 20.9 % Monocytes (%) (Auto) 9.9 % Eosinophils (%) (Auto) 4.9 % Basophils (%) (Auto) 0.6 % Neutrophils # (Auto) 4.3 X10'3 Lymphocytes # (Auto) 1.4 X10'3 Monocytes # (Auto) 0.7 X10'3 Eosinophils # (Auto) 0.3 X10'3 Basophils # (Auto) 0.0 X10'3 CBC Comment Prothrombin Time 10.8 SECONDS INR International Normalized Ratio 1.1 INR Activated Partial Thromboplast Time 30 SECONDS Coagulation Comments Sodium Level 141 MMOL/L Potassium Level 3.8 MMOL/L 3.9 MMOL/L Chloride Level 102 MMOL/L Carbon Dioxide Level 27.7 MMOL/L Anion Gap 11 Blood Urea Nitrogen 10 MG/DL Creatinine 1.30 MG/DL Estimated GFR/1.73 m2 54 ML/MIN BUN/Creatinine Ratio 7.7 Glucose Level 188 MG/DL Hemoglobin A1c 5.5 % Calcium Level 9.6 MG/DL Albumin 3.6 G/DL Chemistry Comments Urine Specimen Description Cln catch midstream Urine Color Yellow Urine Clarity Clear Urine pH 6.0 Urine Specific [place] <=1.005 Urine Protein Negative mg/dl Urine Glucose (UA) Negative mg/dl Urine Ketones Negative mg/dl Urine Occult Blood Negative Urine Nitrite Negative Urine Bilirubin Negative Urine Urobilinogen 0.2 E.U/dL Urine Leukocyte Esterase Negative Urine Culture Indicated Not ind Volume Urine Centrifuged 10 ml Urine Comment Urine Opiates Screen Negative Urine Methadone Screen Negative Urine Fentanyl Screen Negative Urine Barbiturates Screen Negative Urine Phencyclidine Screen Negative Urine Amphetamines Screen Negative Urine Benzodiazepines Screen Negative Urine Cocaine Screen Negative Urine Cannabinoids Screen Positive Drug Screen Comment Lactic Acid Level 0.6 MMOL/L Magnesium Level 1.8 MG/DL *Problems/Diagnosis: (1) Dehydration Total Time Spent on D/C: > 30 Minutes Date of Service: Sep 05, 2024 Billing Provider: LIVIER CRUMP MD Common Visit Codes: 46004-LCJ/OBS DISCH DAY >30min JIE DEMARCO, RES Sep 05, 2024 19:22 LIVIER CRUMP MD Sep 05, 2024 22:16
--- NOTE | 2024-09-07 16:59 | CARDIOLOGY REPORT ---
APPROVED REPORT EXAM: Comprehensive 2D, Doppler, and color-flow Echocardiogram. 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 148.2 cm/s AoV VTI 40.4 cm AO Peak GR. 8.8 mmHg AO Mean GR. 4 mmHg LVOT VTI 27.94 cm LVOT Peak Jesus. 117.1 cm/s DEEDEE(VTI)/BSA 2.30 cm2/m2 DEEDEE (VTI) 2.30 cm2 Mitral Valve MV E Velocity 91.4 cm/s MV Peak Gr. 4 mmHg MV DECEL TIME 244 ms MV A Velocity 87.4 cm/s MV PHT 80 ms E/A Ratio 1.0 MVA (PHT) 2.75 cm2 MV VMax93.8 cm/s TDI Medial E' P. V 9.30 cm/s E/Medial E' 9.8 Tricuspid Valve TR P. Velocity 247 cm/s RAP ESTIMATE 10 mmHg TR Peak Gr. 24 mmHg RVSP 34 mmHg Pulmonary Vein S1 Velocity 71.7 cm/s D2 Velocity 53.1 cm/s PVa Tykaerfx41.7 cm/s PVa [id number] msec LEFT VENTRICLE Normal LV size and wall thickness. Overall systolic function is normal. LVEF is 60-65%. RIGHT VENTRICLE RV is normal size and function. RVSP is estimated at 34 mmHG. ATRIA The left atrium size is normal. AORTIC VALVE Trileaflet AV appears sclerotic without stenosis. Trivial insufficiency. MITRAL VALVE MV is thickened with mild annular thickening and no stenosis. Trace mitral regurgitation. TRICUSPID VALVE The tricuspid valve is normal in structure. Trace tricuspid regurgitation. PULMONIC VALVE The pulmonary valve is normal in structure. Trace pulmonic regurgitation. GREAT VESSELS The aortic root is normal in size. The IVC is normal in size and collapses >50% with inspiration. PERICARDIUM There is no pericardial effusion. Other Information Study Quality: Adequate Conclusion Normal LV size and wall thickness. Overall systolic function is normal. LVEF is 60-65%. RV is normal size and function. RVSP is estimated at 34 mmHG. The left atrium size is normal. Trileaflet AV appears sclerotic without stenosis. Trivial insufficiency. MV is thickened with mild annular thickening and no stenosis. Trace mitral regurgitation. The tricuspid valve is normal in structure. Trace tricuspid regurgitation. The pulmonary valve is normal in structure. Trace pulmonic regurgitation. There is no pericardial effusion.
== END 2024-09-05 16:35 | disposition home or self-care (01) | DRG 640 ==
LOC: ER 23:01 → ED HOLD 09-05 00:44 → ORTHO 4S 09-05 02:58
PROVIDERS: ADMIT Internal Medicine Sleep Medicine; ATTEND Internal Medicine
PROC: B3251ZZ Computerized Tomography (CT Scan) of Bilateral Common Carotid Arteries using Low Osmolar Contrast (ICD-10-PCS; principal; 2024-09-05)
PROC: B32G1ZZ Computerized Tomography (CT Scan) of Bilateral Vertebral Arteries using Low Osmolar Contrast (ICD-10-PCS; 2024-09-05)
PROC: B32R1ZZ Computerized Tomography (CT Scan) of Intracranial Arteries using Low Osmolar Contrast (ICD-10-PCS; 2024-09-05)
PROC: B3281ZZ Computerized Tomography (CT Scan) of Bilateral Internal Carotid Arteries using Low Osmolar Contrast (ICD-10-PCS; 2024-09-05)
DX: E86.0 Dehydration (principal); N17.0 Acute kidney failure with tubular necrosis; I10 Essential (primary) hypertension; E78.5 Hyperlipidemia, unspecified; F43.10 Post-traumatic stress disorder, unspecified; G62.9 Polyneuropathy, unspecified
CPT/HCPCS: 36415; 70450; 70496; 70498; 70551; 71045; 80048; 80305; 81003; 83036; 83605; 83735; 84132; 85025; 85610; 85730; 86885; 86900; 86901; 87040; 87077; 87081; 87186; 92508; 92616; 93005; 93306; 96360; 96372; 97116; 97161; 97530; 99285; G0378; J1644; J7030; Q9967

== ENCOUNTER 2024-09-17 04:54 | Inpatient (IN) | payer MEDICARE, MEDICAID ==
[~2024-09-17] VITALS: Ht 172.7 cm; Wt 65.5 kg
--- NOTE | 2024-09-17 05:22 | ELECTROCARDIOGRAPH REPORT ---
[facility] Test Date: 2024-09-17 Test Time: 04:56:41 Pat Name: ORALIA MORLEY Department: EMERGENCY ROOM Room: ORTHO [facility] Gender: M Loan Funder: PM : 1950 Requested By: NII OWUSU Order Number: [id number] Reading MD: Dr. Yayo Waller Measurements Intervals Preemption Rate: 41 P: 24 WY: 62 QRS: 35 QRSD: 123 T: 55 QT: 554 QTc: 458 Interpretive Statements Bradycardia with irregular rate Short WY interval Probable left atrial enlargement Nonspecific intraventricular conduction delay Electronically Signed On 09-26-2024 18:43:[address] Yayo Waller Please click the below link to view image of tracing.
[2024-09-17 05:55] LABS: BASOPHILS # (AUTO) 0.1 X10'3 (0-0.2); EOSINOPHILS # (AUTO) 0.6 X10'3 (0-0.9); EOSINOPHILS % (AUTO) 7.9 % (0-6); HEMATOCRIT 45.1 % (42.0-52.0); HEMOGLOBIN 15.7 g/dl (14.0-17.9); LYMPHOCYTES # (AUTO) 1.5 X10'3 (1.1-4.8); LYMPHOCYTES % (AUTO) 19.9 % (21-51); MEAN CORPUSCULAR HEMOGLOBIN 31.8 PG (27.0-31.0); MEAN CORPUSCULAR HGB CONC 34.9 g/dL (33.0-36.5); MEAN PLATELET VOLUME 7.3 FL (7.4-10.4); MONOCYTES # (AUTO) 0.7 X10'3 (0-0.9); MONOCYTES % (AUTO) 8.9 % (2-12); NEUTROPHILS # (AUTO) 4.8 X10'3 (1.8-7.7); NEUTROPHILS % (AUTO) 62.3 % (42-75); PLATELET COUNT 309 X10'3 (140-440); RED BLOOD COUNT 4.95 X10'6 (4.70-6.10); RED CELL DISTRIBUTION WIDTH 13.5 % (11.5-14.5); WHITE BLOOD COUNT 7.7 X10'3 (4.5-11.0)
[2024-09-17 06:13] LABS: ALBUMIN 3.6 G/DL (3.4-5.0); ANION GAP 5 (8-16); BLOOD UREA NITROGEN 14 MG/DL (7-18); BUN/CREATININE RATIO 10.8 (10.0-20.0); CALCIUM 9.5 MG/DL (8.5-10.1); CHLORIDE 102 MMOL/L (99-107); POTASSIUM 3.7 MMOL/L (3.5-5.1); PRO BRAIN NATRIURETIC PEPTIDE 83 PG/ML (0-125); SODIUM 137 MMOL/L (135-145); TOTAL CARBON DIOXIDE 30.1 MMOL/L (24-32); eCRCL 48 ML/MIN; eGFR 54 ML/MIN
--- NOTE | 2024-09-17 06:15 | RADIOLOGY REPORT ---
EXAM: XR Chest, 1 View CLINICAL INDICATION: Pain TECHNIQUE: Frontal view of the chest. COMPARISON: No relevant prior studies available. FINDINGS: LUNGS AND PLEURAL SPACES: Unremarkable. No consolidation. No pneumothorax. HEART: Unremarkable. No cardiomegaly. MEDIASTINUM: Unremarkable. Normal mediastinal contour. BONES/JOINTS: Unremarkable. No acute fracture. IMPRESSION: No acute cardiopulmonary process.
--- NOTE | 2024-09-17 06:21 | Physician Documentation ---
History of Present Illness ~ Chief Complaint: Shortness of Breath Stated Complaint: SHORT OF BREATH,WEAKNESS Time Seen by MD: 06:19 Primary Medical Doctor: NONE Mode of Arrival: POV HPI 73-year-old male, presenting with an episode of near-syncope He tells me that this morning he was sitting up in a chair, when he suddenly felt dizzy, sweaty, had tunnel vision, felt nauseous, and felt like he was going to pass out. He states I felt like I was going to . He states this lasted for a couple of minutes and then resolved. He currently denies any significant symptoms including denies any current dizziness or symptoms as above. During this time he denies any chest pain, palpitations, vomiting, abdominal pain, or other associated symptoms. He does think he may be dehydrated. He has not been eating very much food. Medication Reconciliation Allergies: Coded Allergies: No Known Allergies (Unverified , 09/04/24) Scheduled Magnesium Glycinate (Mag Glycinate), 2 TAB PO DAILY, (Reported) [place]-3 Acid Ethyl Esters* (Lovaza*), 3-4 CAP PO DAILY, (Reported) Red Yeast Rice (Red Yeast Rice), 600 MG PO BID, (Reported) Ubidecarenone (Coq-10), 100 MG PO DAILY, (Reported) Past Medical History Past Medical History: Pneumonia, *PSYCH* Past Surgical History: no surgical history Patient History: Neoplasm of brain MOTHER, Onset:60 Alcohol Use: None Drug Use: marijuana Lives with: Family Lives In: Home Review of Systems Constitutional: Denies: fever Cardiovascular: Denies: chest pain Gastrointestinal: Reports: nausea; Denies: abdominal pain, vomiting Neurological: Reports: dizziness; Denies: headache Physical Exam Vital Signs: Temperature: 97.3, Source: Temporal, Heart Rate: 47, Respiratory Rate: 14, BP: 142/57, Pulse Oximetry: 99, Weight: 65.450 Oxygen Flow Rate: 0 Physical Exam General: This is a overall well-appearing and mildly anxious older man HEENT: Atraumatic, oropharynx diffuse dry Heart: Mild bradycardia, with a variable rate from the 40s to 50s, appears sinus rhythm on the monitor Lungs: Clear breath sounds bilateral, normal work of breathing, normal oxygen saturation on room air Abdomen: Soft, nondistended, nontender all quadrants Extremities: Warm and well-perfused Neuro: Alert and oriented, no focal deficits Psychiatric: Appears mildly anxious, is very talkative, is cooperative with exam Progress Results/Orders Results/Orders Orders - FER PARKER MD * Orthostatic Vitals* Q12H (09/17/24 06:32) General Nursing Order (09/17/24 ) Page Hospitalist (09/17/24 12:44) Completed Orders - FER PARKER MD Normal Saline 1000ml (Sodium Chloride 10 (09/17/24 06:35) Normal Saline 1000ml (Sodium Chloride 10 (09/17/24 09:40) Medications Received in ER Medications (Trade) Dose Ordered Sig/Jeremiah Route PRN Reason Start Time Stop Time Status Last Admin Dose Admin Sodium Chloride 1,000 ml @ 100 mls/hr Q10H IV 09/17/24 13:10 09/17/24 13:59 100 MLS/HR Vital Signs 09/17/24 09/17/24 09/17/24 09/17/24 04:57 05:36 05:37 06:38 Temp 97.3 Pulse 49 47 39 Resp 15 14 14 B/P (MAP) 161/65 142/57 (85) 131/63 (85) Pulse Ox 99 99 98 O2 Flow Rate 0 09/17/24 09/17/24 09/17/24 09/17/24 08:02 10:09 12:51 12:53 Pulse 41 56 45 54 48 44 Resp 18 18 6 B/P (MAP) 116/58 (77) 132/64 (86) 134/72 (92) 138/63 134/59 134/72 Pulse Ox 96 97 Laboratory Tests Test 09/17/24 05:30 09/17/24 07:27 White Blood Count 7.7 Red Blood Count 4.95 Hemoglobin 15.7 Hematocrit 45.1 Mean Corpuscular Volume 91.0 Mean Corpuscular Hemoglobin 31.8 H Mean Corpuscular Hemoglobin Concent 34.9 Red Cell Distribution Width 13.5 Platelet Count 309 Mean Platelet Volume 7.3 L Neutrophils (%) (Auto) 62.3 Lymphocytes (%) (Auto) 19.9 L Monocytes (%) (Auto) 8.9 Eosinophils (%) (Auto) 7.9 H Basophils (%) (Auto) 1.0 Neutrophils # (Auto) 4.8 Lymphocytes # (Auto) 1.5 Monocytes # (Auto) 0.7 Eosinophils # (Auto) 0.6 Basophils # (Auto) 0.1 CBC Comment Sodium Level 137 Potassium Level 3.7 Chloride Level 102 Carbon Dioxide Level 30.1 Anion Gap 5 L Blood Urea Nitrogen 14 Creatinine 1.30 H Estimated GFR/1.73 m2 54 BUN/Creatinine Ratio 10.8 Glucose Level 113 H Calcium Level 9.5 Magnesium Level 2.1 Troponin I High Sensitivity 6 8 Pro-B-Type Natriuretic Peptide 83 Albumin 3.6 Chemistry Comments Osmolality 293 Troponin I High Sens Percent Delta 33 Troponin I Hi Sens Absolute Change 2 EKG/XRAY/CT/US/VASC/MRI EKG : Additional Comment I personally interpreted the EKG and this shows: Bradycardia, rate 41, QTC 458, QRS 123 Chest X-Ray : Additional Comments I personally reviewed the x-ray, and it shows: No focal consolidation, no mediastinal widening, no pulmonary edema Consults/PCP Consults/PCP : Additional Comment Consult: I spoke to the internal medicine service, for admission in the hospital Medical Decision Making Additional info obtained from: old records Findings The patient was recently admitted to the hospital, discharged on 09/05, with a similar episode of shortness of breath and dizziness. He had a negative stroke workup including MRI and vascular imaging. He was found to have positive orthostatics and dehydration, which improved with fluids. Differential Dx:Considerations: Include: anxiety, cardiogenic shock, CHF, COPD, dysrhythmia, hypertension, malignant, hyperventilation, myocardial infarction, panic attack, upper resp. infection Assessment 73-year-old male presenting with what sounds like a near syncopal episode or vasovagal type episode. Here in the ED he is currently asymptomatic. He is mildly bradycardic, with a heart rate in the 40s to 50s. He does endorse dehydration. He is given IV fluids, but remained with orthostatic dizziness. His laboratory testing is otherwise unremarkable. Given his ongoing symptoms and unclear reason for his syncope, he will require admission for further workup and treatment. Initially, the patient was hesitant to be admitted, and so he had a prolonged ER course, where he was given further IV fluids to see if his symptoms improved. Eventually, he did agree to admission and so the medicine team was consulted for admission. Departure Impression: Primary Impression: Near syncope Additional Impressions: Bradycardia Orthostatic dizziness Referrals: NO PRIMARY CARE PROVIDER (PCP) Signature Scribe Signature: na Attestation: FER Larios MD Sep 17, 2024 06:21
[2024-09-17 06:22] LABS: GLUCOSE 113 MG/DL (70-104)
[2024-09-17] MEDS: normal saline 1000ml 1,000 ML IV ONE ×2 (06:37→10:03)
[2024-09-17 06:51] LABS: MAGNESIUM 2.1 MG/DL (1.5-2.4)
[2024-09-17] MEDS ORDERED: magnesium sulf-water 2g/50mL 50 ML IV PRN (13:10)
[2024-09-17] MEDS ORDERED: ondansetron/PF 4mg/2ml inj IV PRN (13:10)
[2024-09-17] MEDS ORDERED: acetaminophen 325mg tablet PO PRN ×2 (13:10)
[2024-09-17] MEDS ORDERED: potassium Cl 20 mEq SR tablet PO PRN ×2 (13:10)
[2024-09-17] MEDS ORDERED: magnesium sulf-water 4G/100mL 100 ML IV PRN (13:10)
[2024-09-17] MEDS ORDERED: potassium Cl 40MEQ/1/2NS 520ml 520 ML IV PRN (13:10)
[2024-09-17] MEDS ORDERED: magnesium Cl slow-release 64mg tablet PO PRN (13:10)
[2024-09-17] MEDS: normal saline 1000ml 1,000 ML IV SCH (13:59)
--- NOTE | 2024-09-17 14:04 | HISTORY AND PHYSICAL-Residence ---
History & Physical Providers to CC Resident Creating Document: JANNET RECINOSSUNDAR YIMI, RES ~ History of Present Illness Primary Medical Doctor: [facility]. Reason for Admit\\Complaint: Dizziness History of Present Illness PCP: [facility]. 73-year-old male with past history of TIA, hypothyroidism, PTSD, came to the hospital with chief complaint of dizziness. As per patient last night approximately at 12:00 a.m. he woke up to prepare his garlic as he usually does. Before eating it the patient states that he started having some dizziness described as an unbalanced "I feel like I am drunk". Associated to this dizziness the patient states mild nausea and generalized weakness. The patient denies losing consciousness, chest pain, palpitations, urinary or intestinal symptoms. Patient had a similar episode 12 days ago, for which he was admitted here and was discharged with advise to follow up with PCP within the week after ruling out CVA, TIA, BPPV. No GI or symptoms. Allergies: Coded Allergies: No Known Allergies (Unverified , 09/04/24) Home Medications Home Medications Active Reported Mag Glycinate (Magnesium Glycinate) 100 Mg Tablet 2 Tab PO DAILY Coq-10 (Ubidecarenone) 100 Mg Capsule 100 Mg PO DAILY Lovaza* ([place]-3 Acid Ethyl Esters*) 1 Gm Capsule 3-4 Cap PO DAILY Red Yeast Rice 600 Mg Tablet 600 Mg PO BID Past Medical History Past Medical History TIA 7-8 years ago PTSD - as per patient taking magnesium. Hypothyroidism - as per patient he was discontinued his medications by his primary care physician. 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 HEENT: Conjunctive are pink, sclerae clear, no icterus, pupil is equal in both sides, reactive to light, no ear discharge, no pharyngeal erythema or an edema. Neck: Supple, no JVD, no lymphadenopathy and thyromegaly. Chest: Equal air entry on both lungs, no additional sounds no rhonchi no wheezing at the moment. Cardiovascular: S1-S2 bradycardia, regular sinus rhythm and, regular rate, no gallops, no rubs, no murmurs Abdomen: No visible peristalsis, Bowel sounds present on auscultation, soft, nontender, no guarding, no rigidity Extremities: No obvious deformities, no pitting edema bilaterally, capillary refill intact, peripheral pulsations are intact on both sides Central Nervous System: No focal neurological deficits, no motor or sensory weakness in all 4 extremities, could move all 4 extremities, 2+ deep tendon reflexes, negative Babinski. Musculoskeletal: No joint swelling, deformities, inflammations, and no scoliosis and back tenderness Skin: Warm and dry. Diagnostic Data Last Recorded Lab Results: 09/17/24 0530 09/17/24 0530 Advance Care Planning Advanced Care plannin - 30 Minutes Additional Plan Dizziness likely secondary to orthostatic hypotension: Acute kidney injury likely secondary to dehydration: Creatinine 1.30, BUN/creatinine ratio 10.8. Follow-up orthostatic vitals. Follow-up urine lytes. NS at 100 mL/hour. Possible symptomatic bradycardia: Patient had a similar episode 12 days ago, for which he was admitted here. He was diagnosed with orthostatic hypotension due to dehydration. EKG: Junctional rhythm: Heart rate 42, normal axis deviation, OH interval 62, presence of P wave with irregular rhythm. Stroke workup negative twelve days ago. Currently without focal neurologic deficits: MRI of the head 09/05/2024: No acute infarct, intracranial hemorrhage, mass effect, or hydrocephalus. Echocardiogram on 09/05/2024: Normal LV size and wall thickness. Overall systolic function is normal. LVEF is 60-65%. RV is normal size and function. RVSP is estimated at 34 mmHG. The left atrium size is normal. Trileaflet AV appears sclerotic without stenosis. Trivial insufficiency. MV is thickened with mild annular thickening and no stenosis. Trace mitral regurgitation. The tricuspid valve is normal in structure. Trace tricuspid regurgitation. The pulmonary valve is normal in structure. Trace pulmonic regurgitation. There is no pericardial effusion. Head/neck CTA: No evidence of hemodynamically significant intracranial stenosis, proximal occlusion or aneurysm. No evidence of hemodynamically significant carotid stenosis or dissection. Right vertebral artery originates off the aorta with a retroesophageal course. Telemetry monitoring. Code status: Full code DVT prophylaxis: Heparin and SCDs. Analgesia/sedation: None Line/tube: PIV GI prophylaxis: None Nutrition: Regular diet PT: Ordered Prognosis: Guarded Disposition: The patient will be [facility] with telemetry. Sundar Recinos Internal Medicine Resident [facility] Date of Service: Sep 17, 2024 Billing Provider: MARIELA HOUSE MD Common Visit Codes: 91072-[id number] INP/OBS CARE (HIGH) Secondary Visit Codes: [id number] CARE PLAN 30 MINUTES SUNDAR CROWELL, RES Sep 17, 2024 14:04 MARIELA HOUSE MD Sep 18, 2024 17:48
[2024-09-17 17:18] VITALS: BP 117/54; PULSE 50; RESP 17; TEMP 98; O2SAT 97
[2024-09-17 18:50] VITALS: BP 117/54; PULSE 50; RESP 14; TEMP 98; O2SAT 99
[2024-09-17 20:00] VITALS: BP_SYST 133; BP_SYST 138; BP_DIAS 58; BP_DIAS 65; BP_DIAS 69; PULSE 51; PULSE 55
[2024-09-17] MEDS: heparin, porcine 5000 units/ml vial SQ SCH (21:29)
[2024-09-17 22:00] VITALS: BP 133/58; PULSE 51; RESP 13; TEMP 98.4; O2SAT 98
[2024-09-18 02:00] VITALS: BP 133/66; PULSE 37; RESP 15; TEMP 97.9; O2SAT 98
[2024-09-18 05:06] LABS: BASOPHILS # (AUTO) 0.1 X10'3 (0-0.2); BASOPHILS % (AUTO) 1.3 % (0-1); EOSINOPHILS # (AUTO) 0.5 X10'3 (0-0.9); EOSINOPHILS % (AUTO) 7.7 % (0-6); HEMATOCRIT 40.5 % (42.0-52.0); LYMPHOCYTES # (AUTO) 1.1 X10'3 (1.1-4.8); MEAN CORPUSCULAR HEMOGLOBIN 31.5 PG (27.0-31.0); MEAN CORPUSCULAR HGB CONC 34.7 g/dL (33.0-36.5); MEAN CORPUSCULAR VOLUME 90.9 FL (78-98); MEAN PLATELET VOLUME 7.4 FL (7.4-10.4); MONOCYTES # (AUTO) 0.6 X10'3 (0-0.9); MONOCYTES % (AUTO) 10.1 % (2-12); NEUTROPHILS # (AUTO) 3.7 X10'3 (1.8-7.7); NEUTROPHILS % (AUTO) 61.9 % (42-75); PLATELET COUNT 275 X10'3 (140-440); RED BLOOD COUNT 4.45 X10'6 (4.70-6.10); RED CELL DISTRIBUTION WIDTH 13.5 % (11.5-14.5); WHITE BLOOD COUNT 5.9 X10'3 (4.5-11.0)
[2024-09-18 05:49] LABS: ALANINE AMINOTRANSFERASE 52 U/L (12-78); ALBUMIN 2.8 G/DL (3.4-5.0); ALBUMIN/GLOBULIN RATIO 0.9 (1.1-1.5); ALKALINE PHOSPHATASE 78 IU/L (46-116); ANION GAP 7 (8-16); ASPARTATE AMINO TRANSFERASE 37 U/L (10-37); BILIRUBIN,TOTAL 0.6 MG/DL (0.1-1.0); BLOOD UREA NITROGEN 9 MG/DL (7-18); CALCIUM 8.7 MG/DL (8.5-10.1); CHLORIDE 108 MMOL/L (99-107); CHOLESTEROL 130 MG/DL (0-200); GLUCOSE 95 MG/DL (70-104); HDL CHOLESTEROL 44 MG/DL (35-60); LDL CHOLESTEROL 71 MG/DL (50-100); POTASSIUM 3.8 MMOL/L (3.5-5.1); SODIUM 141 MMOL/L (135-145); THYROID STIMULATING HORMONE 2.01 ulU/ml (0.34-4.50); TOTAL CARBON DIOXIDE 26.5 MMOL/L (24-32); TRIGLYCERIDES 65 MG/DL (20-135); eCRCL 62 ML/MIN; eGFR 73 ML/MIN
[2024-09-18 06:00] VITALS: BP 108/60; PULSE 44; RESP 15; TEMP 98.3; O2SAT 97
[2024-09-18 08:00] VITALS: BP_SYST 117; BP_SYST 126; BP_SYST 134; BP_DIAS 60; BP_DIAS 66; BP_DIAS 79; PULSE 57; PULSE 65
[2024-09-18 10:00] VITALS: BP 124/57; PULSE 44; RESP 12; TEMP 97.6; O2SAT 99
--- NOTE | 2024-09-18 12:33 | PROGRESS NOTE- Residence ---
Progress Note - Resident Providers to CC Resident Creating Document: MARTIN CROWELL, RES ~ Antibiotic Timeout Antibiotic Ordered?: No Subjective The patient has been evaluated at the bedside. The patient denies dizziness while resting. Heart rates during the last night came down to 32 bpm. Objective Vital Signs Date Time Temp Pulse Resp B/P (MAP) Pulse Ox O2 Delivery O2 Flow Rate FiO2 09/18/24 10:00 97.6 44 12 124/57 (79) 99 Room Air 09/17/24 05:36 0 Physical exam: General: Well alert, well oriented, not confused, not agitated, not in acute distress, well cooperated during the physical. HEENT: Conjunctive are pink, sclerae clear, no icterus, pupil is equal in both sides, reactive to light, no ear discharge, no pharyngeal erythema or an edema. Neck: Supple, no JVD, no lymphadenopathy and thyromegaly. Chest: Equal air entry on both lungs, no additional sounds no rhonchi no wheezing at the moment. Cardiovascular: S1-S2 bradycardia, regular sinus rhythm and, regular rate, no gallops, no rubs, no murmurs Abdomen: No visible peristalsis, Bowel sounds present on auscultation, soft, nontender, no guarding, no rigidity Extremities: No obvious deformities, no pitting edema bilaterally, capillary refill intact, peripheral pulsations are intact on both sides Central Nervous System: No focal neurological deficits, no motor or sensory weakness in all 4 extremities, could move all 4 extremities, 2+ deep tendon reflexes, negative Babinski. Musculoskeletal: No joint swelling, deformities, inflammations, and no scoliosis and back tenderness Skin: Warm and dry. Result Diagram: 09/18/249 09/18/24428 Assessment Assessment 73-year-old male patient came to the hospital with chief complaint of dizziness. Plan Plan Symptomatic bradycardia: Patient had a similar episode 12 days ago, for which he was admitted here. He was diagnosed with orthostatic hypotension due to dehydration. EKG: Junctional rhythm: Heart rate 42, normal axis deviation, AL interval 62, presence of P wave with irregular rhythm. Stroke workup negative twelve days ago. Currently without focal neurologic deficits: MRI of the head 09/05/2024: No acute infarct, intracranial hemorrhage, mass effect, or hydrocephalus. Echocardiogram on 09/05/2024: Normal LV size and wall thickness. Overall systolic function is normal. LVEF is 60-65%. RV is normal size and function. RVSP is estimated at 34 mmHG. The left atrium size is normal. Trileaflet AV appears sclerotic without stenosis. Trivial insufficiency. MV is thickened with mild annular thickening and no stenosis. Trace mitral regurgitation. The tricuspid valve is normal in structure. Trace tricuspid regurgitation. The pulmonary valve is normal in structure. Trace pulmonic regurgitation. There is no pericardial effusion. Head/neck CTA: No evidence of hemodynamically significant intracranial stenosis, proximal occlusion or aneurysm. No evidence of hemodynamically significant carotid stenosis or dissection. Right vertebral artery originates off the aorta with a retroesophageal course. Telemetry monitoring. 09/18/2024: Heart rate during the night came down to 32 beats per minute. Cardiology Dr. Justin consulted. Awaiting recommendations. Acute kidney injury likely secondary to dehydration-improved: Orthostatic hypotension-ruled out: Creatinine 1.30, BUN/creatinine ratio 10.8. Follow-up orthostatic vitals. Follow-up urine lytes. NS at 100 mL/hour. 09/18/2024: Creatinine 1.00, GFR 73. Still pending urine lytes. Continue NS at 80 mL/hour. Code status: Full code DVT prophylaxis: Heparin and SCDs. Analgesia/sedation: None Line/tube: PIV GI prophylaxis: None Nutrition: Regular diet PT: Ordered Prognosis: Guarded Disposition: Cardiology consulted. Awaiting recommendations. Martin Grover Internal Medicine Resident [facility] Date of Service: Sep 18, 2024 Billing Provider: MARIELA HOUSE MD Common Visit Codes: [id number] INP/OBS CARE(HIGH) MARTIN CROWELL, RES Sep 18, 2024 12:33 MARIELA HOUSE MD Sep 18, 2024 17:49
--- NOTE | 2024-09-18 12:51 | CONSULTATION REPORT ---
Cardiac Consultation Report Providers to CC ~ Subjective Subjective Cardiology consultation: Are [age] dizziness sinus bradycardia. Patient was here on 09/05/2024 for the same symptoms. He had CAT scan of brain CT angio of the brain MRI without any findings. Rhythm strips are reviewed and he had sinus bradycardia unchanged compared to now EKG no changes. He is dizzy with change in position bending forward rotating. He has a belief in homeopathic therapy and does not take any medications. Remote diagnoses without any records available are posttraumatic stress disorder his brother and sister were murdered. Hypertension transient ischemic attack unclear if he really had one or not. Present hospitalization was precipitated by being up at 3:30 a.m. and having a meal in the kitchen and breaking out in a sweat and becoming more dizzy. Objective Vitals Vital Signs Date Time Temp Pulse Resp B/P (MAP) Pulse Ox O2 Delivery O2 Flow Rate FiO2 09/18/24 10:00 97.6 44 12 124/57 (79) 99 Room Air 09/17/24 05:36 0 Lab Results: 09/18/24 0429 09/18/24 0429 Objective Carotid no bruit chest clear to auscultation percussion heart no murmur no S3 gallop no rub abdomen active bowel sounds no bruits pulses plus two in upper and lower extremity strength equal bilaterally. Other Results The patient becomes engaged in starts to describe his symptoms heart rate increases from 42 per minute to 60 per minute normal sinus. Problem\Assessment\Plan Additional Plan Impression: Patient's dizziness is not secondary to his chronic sinus bradycardia. No need for a permanent pacemaker. Recommendation freely ambulatory. Thyroid panel pending. Follow up with his primary care upon discharge. FER SULLIVAN MD Sep 18, 2024 12:51
[2024-09-18 18:00] VITALS: BP 139/68; PULSE 51; RESP 14; TEMP 99; O2SAT 96
[2024-09-18 22:00] VITALS: BP 139/66; PULSE 57; RESP 13; TEMP 97.6; O2SAT 97
[2024-09-18 22:50] LABS: BILIRUBIN,URINE NEGATIVE (Neg); CLARITY,URINE CLEAR (Clear); COLOR,URINE STRAW (Yellow); GLUCOSE, URINE NEGATIVE (Neg); KETONES,URINE NEGATIVE (Neg); LEUKOCYTE ESTERASE ,URINE NEGATIVE (Neg); NITRITES, URINE NEGATIVE (Neg); OCCULT BLOOD,URINE NEGATIVE (Neg); PH,URINE 7.5 (4.8-8.0); PROTEIN,URINE NEGATIVE (Neg); UROBILINOGEN,URINE 0.2 E.U/dL (0.2-1.0)
[2024-09-18 22:51] LABS: UA COLLECTION TYPE NON-SPECIFIED
[2024-09-18 23:02] LABS: URINE AMPHETAMINE SCREEN NEGATIVE (Neg); URINE BARBITUATE SCREEN NEGATIVE (Neg); URINE BENZODIAZEPINES SCREEN NEGATIVE (Neg); URINE CANNABINOID SCREEN POSITIVE (Neg); URINE COCAINE SCREEN NEGATIVE (Neg); URINE METHADONE SCREEN NEGATIVE (Neg); URINE OPIATE SCREEN NEGATIVE (Neg); URINE PHENCYCLIDINE SCREEN NEGATIVE (Neg)
[2024-09-18 23:06] LABS: TOTAL PROTEIN,URINE RANDOM 6.4 MG/DL
[2024-09-18 23:08] LABS: UA EOSINOPHILS NO EOS /HPF
[2024-09-19 04:53] LABS: BASOPHILS # (AUTO) 0.1 X10'3 (0-0.2); EOSINOPHILS # (AUTO) 0.4 X10'3 (0-0.9); EOSINOPHILS % (AUTO) 5.9 % (0-6); HEMATOCRIT 42.5 % (42.0-52.0); HEMOGLOBIN 14.5 g/dl (14.0-17.9); LYMPHOCYTES # (AUTO) 1.1 X10'3 (1.1-4.8); LYMPHOCYTES % (AUTO) 18.5 % (21-51); MEAN CORPUSCULAR HEMOGLOBIN 30.9 PG (27.0-31.0); MEAN CORPUSCULAR VOLUME 90.9 FL (78-98); MEAN PLATELET VOLUME 7.3 FL (7.4-10.4); MONOCYTES # (AUTO) 0.6 X10'3 (0-0.9); MONOCYTES % (AUTO) 9.8 % (2-12); NEUTROPHILS % (AUTO) 64.8 % (42-75); PLATELET COUNT 290 X10'3 (140-440); RED BLOOD COUNT 4.68 X10'6 (4.70-6.10); RED CELL DISTRIBUTION WIDTH 13.4 % (11.5-14.5); WHITE BLOOD COUNT 6.2 X10'3 (4.5-11.0)
[2024-09-19 05:07] LABS: ALANINE AMINOTRANSFERASE 49 U/L (12-78); ALBUMIN/GLOBULIN RATIO 0.9 (1.1-1.5); ALKALINE PHOSPHATASE 81 IU/L (46-116); ANION GAP 4 (8-16); ASPARTATE AMINO TRANSFERASE 31 U/L (10-37); BILIRUBIN,TOTAL 0.7 MG/DL (0.1-1.0); BLOOD UREA NITROGEN 13 MG/DL (7-18); BUN/CREATININE RATIO 12.9 (10.0-20.0); CALCIUM 9.3 MG/DL (8.5-10.1); CHLORIDE 107 MMOL/L (99-107); CREATININE 1.01 MG/DL (0.60-1.10); GLUCOSE 93 MG/DL (70-104); SODIUM 141 MMOL/L (135-145); TOTAL PROTEIN 6.4 G/DL (6.4-8.2); eCRCL 61 ML/MIN; eGFR 73 ML/MIN
[2024-09-19 06:00] VITALS: BP 147/59; PULSE 50; RESP 16; TEMP 98.3; O2SAT 93
[2024-09-19 10:00] VITALS: BP 125/66; PULSE 58; RESP 16; TEMP 97.6; O2SAT 96
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
== END 2024-09-19 10:55 | disposition home or self-care (01) | DRG 641 ==
LOC: ER 04:55 → ED HOLD 13:10 → ORTHO 4S 16:58
PROVIDERS: ADMIT Internal Medicine; ATTEND Internal Medicine
DX: E86.0 Dehydration (principal); N17.9 Acute kidney failure, unspecified; R00.1 Bradycardia, unspecified; I10 Essential (primary) hypertension; F43.10 Post-traumatic stress disorder, unspecified; E03.9 Hypothyroidism, unspecified
CPT/HCPCS: 36415; 71045; 80048; 80053; 80061; 80305; 81003; 82570; 83735; 83880; 83930; 83935; 84156; 84300; 84443; 84484; 84540; 85025; 87081; 87207; 93005; 96360; 96372; 99285; G0378; J1644; J7030

== ENCOUNTER 2025-01-24 05:19 | Emergency (ER) | payer MEDICARE, MEDICAID ==
[~2025-01-24] VITALS: Ht 172.7 cm; Wt 66.8 kg
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
[2025-01-24] MEDS: ketorolac trometh 30MG/ML vial 30 MG/ML VIAL IM ONE (05:47)
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
[2025-01-24] MEDS ORDERED: CYCL-1 PO (07:07)
[2025-01-24] MEDS ORDERED: AZIT250T3 PO (07:07)
[2025-01-24 07:14] VITALS: BP 132/70; PULSE 70; RESP 16; TEMP 97.5; O2SAT 99
== END 2025-01-24 07:21 | disposition home or self-care (01) ==
LOC: ER 05:19
DX: S13.4XXA Sprain of ligaments of cervical spine, initial encounter (principal); F12.90 Cannabis use, unspecified, uncomplicated; M62.838 Other muscle spasm; Z79.899 Other long term (current) drug therapy; V49.9XXA Car occupant (driver) (passenger) injured in unspecified traffic accident, initial encounter; Y93.89 Activity, other specified; Y92.89 Other specified places as the place of occurrence of the external cause; Y99.8 Other external cause status
CPT/HCPCS: 70450; 72125; 96372; 99285; J1885